=== PATIENT | male | born 1995 | race African-American/Black ===

== ENCOUNTER 2020-11-08 08:58 | Emergency (ER) | payer OTHER, SELFPAY ==
[2020-11-08 17:48] LABS: SARS-CoV-2 PCR by NAA Not Detected (NotDetected)
== END 2020-11-08 10:05 | disposition home or self-care (01) ==
LOC: ERS 08:58
DX: Z20.822 Contact with and (suspected) exposure to COVID-19 (principal)
CPT/HCPCS: 87635; 99283; U0003; U0005

== ENCOUNTER 2021-07-13 03:11 | Emergency (ER) | payer OTHER, SELFPAY ==
[2021-07-13] MEDS ORDERED: Albuterol 200 PUFF (6.7GM INHALER) ONE (03:27)
== END 2021-07-13 04:09 | disposition home or self-care (01) ==
LOC: ERS 03:11
DX: J06.9 Acute upper respiratory infection, unspecified (principal)
CPT/HCPCS: 71045; 93005